=== PATIENT | female | born 1980 | race Caucasian/White ===

== ENCOUNTER → 2024-11-24 07:30 | Outpatient (BNVA) | payer OTHER, SELFPAY | PROVIDERS: Family Provider Family Medicine; PCP Family Medicine | DX: N39.0 Urinary tract infection, site not specified (principal) | CPT/HCPCS: 81000 ==

== ENCOUNTER → 2025-02-09 08:41 | Outpatient (BNVA) | payer OTHER, SELFPAY | PROVIDERS: PCP Family Medicine; Visit Provider Family Medicine | DX: Z51.81 Encounter for therapeutic drug level monitoring (principal); Z00.00 Encounter for general adult medical examination without abnormal findings; Z13.6 Encounter for screening for cardiovascular disorders; M06.9 Rheumatoid arthritis, unspecified; E11.9 Type 2 diabetes mellitus without complications; Z12.4 Encounter for screening for malignant neoplasm of cervix | CPT/HCPCS: 80053; 80061; 82746; 83036; 85025; 86141; 86431; 87624 ==

== ENCOUNTER 2025-03-14 07:57 | Outpatient (CLI) | payer OTHER, SELFPAY ==
--- NOTE | 2025-03-14 08:00 | MM_ITS ---
WS: [id number] BILATERAL DIAGNOSTIC DIGITAL BREAST MAMMOGRAPHY WITH SAAD DISPLACEMENT VIEWS. CAD PERFORMED. LEFT breast ultrasound, limited HISTORY: Palpable area upper outer quadrant LEFT breast. COMPARISON: None available. Bilateral craniocaudal, ML and mediolateral oblique views are performed with tomosynthesis and SM. Spot compression LEFT CC, MLO and mag views. Saad displacement views in CC and MLO projection also performed. Breasts composition: The breasts are heterogeneously dense, which may obscure small masses. Implants are retropectoral and intact. Palpable marker placed along the upper outer quadrant of the LEFT breast very close to the implant. There are a few internal calcifications and also increased asymmetry and density. There are additional linear calcifications just deep to the asymmetry. The irregular shaped asymmetry measures 1.6 x 2.1 cm with central slightly pleomorphic calcifications. No additional abnormality identified. LEFT breast ultrasound, limited. Irregular, angular hypoechoic mass at 2:00, 5 cm from the nipple. This corresponds to the palpable and mammographic abnormality. Mass measures 1.4 x 1.4 x 1.1 cm. There is mild peripheral increased vascularity. Mass does appear to extend very close to the surface of the implant. MM/MM diag BI tomosynthesis [id number] IMPRESSION: BI-RADS: 5 - Highly suggestive of Malignancy FOLLOW-UP: Biopsy Recommended Ultrasound-guided biopsy recommended of the irregular mass LEFT breast 2:00, 5 cm from the nipple. There are some additional calcifications close to the surface of the LEFT impla nt which are linear. These may be dystrophic and related to the implant placeme nt. These would be difficult to biopsy. Surgical biopsy may be necessary. If th e mass at 2:00 is neoplastic surgery will be recommended and these additional c alcifications will need to be addressed surgically. Notified Ivanna Arizmendi MD at 03/14/2025 9:16 AM. Report discussed with Marisol.
--- NOTE | 2025-03-14 08:04 | US_ITS ---
WS: [id number] BILATERAL DIAGNOSTIC DIGITAL BREAST MAMMOGRAPHY WITH SAAD DISPLACEMENT VIEWS. CAD PERFORMED. LEFT breast ultrasound, limited HISTORY: Palpable area upper outer quadrant LEFT breast. COMPARISON: None available. Bilateral craniocaudal, ML and mediolateral oblique views are performed with tomosynthesis and SM. Spot compression LEFT CC, MLO and mag views. Saad displacement views in CC and MLO projection also performed. Breasts composition: The breasts are heterogeneously dense, which may obscure small masses. Implants are retropectoral and intact. Palpable marker placed along the upper outer quadrant of the LEFT breast very close to the implant. There are a few internal calcifications and also increased asymmetry and density. There are additional linear calcifications just deep to the asymmetry. The irregular shaped asymmetry measures 1.6 x 2.1 cm with central slightly pleomorphic calcifications. No additional abnormality identified. LEFT breast ultrasound, limited. Irregular, angular hypoechoic mass at 2:00, 5 cm from the nipple. This corresponds to the palpable and mammographic abnormality. Mass measures 1.4 x 1.4 x 1.1 cm. There is mild peripheral increased vascularity. Mass does appear to extend very close to the surface of the implant. US/US breast LT limited* [id number] IMPRESSION: BI-RADS: 5 - Highly suggestive of Malignancy FOLLOW-UP: Biopsy Recommended Ultrasound-guided biopsy recommended of the irregular mass LEFT breast 2:00, 5 cm from the nipple. There are some additional calcifications close to the surface of the LEFT impla nt which are linear. These may be dystrophic and related to the implant placeme nt. These would be difficult to biopsy. Surgical biopsy may be necessary. If th e mass at 2:00 is neoplastic surgery will be recommended and these additional c alcifications will need to be addressed surgically. Notified Ivanna Arizmendi MD at 03/14/2025 9:16 AM. Report discussed with
== END 2025-03-14 07:58 | disposition home or self-care (01) ==
PROVIDERS: PCP Family Medicine; Visit Provider Family Medicine
DX: N63.21 Unspecified lump in the left breast, upper outer quadrant (principal); R92.333 Mammographic heterogeneous density, bilateral breasts; Z98.82 Breast implant status; R92.1 Mammographic calcification found on diagnostic imaging of breast; N64.89 Other specified disorders of breast
CPT/HCPCS: 76642; 77062; G0279

== ENCOUNTER → 2025-05-02 09:23 | Outpatient (BNVA) | payer OTHER, SELFPAY | PROVIDERS: PCP Family Medicine; Visit Provider Obstetrics & Gynecology | DX: R87.619 Unspecified abnormal cytological findings in specimens from cervix uteri (principal) | CPT/HCPCS: 88305; 88342 ==

== ENCOUNTER → 2025-08-25 12:20 | Outpatient (BNVA) | payer OTHER, SELFPAY | PROVIDERS: PCP Family Medicine; Visit Provider Emergency Medicine | DX: R39.89 Other symptoms and signs involving the genitourinary system (principal) | CPT/HCPCS: 81000; 87086 ==

== ENCOUNTER 2025-09-12 14:15 | Oncology outpatient (recurring) (ONCR) | payer OTHER, SELFPAY | END 2025-10-02 23:59 | disposition home or self-care (01) | PROVIDERS: PCP Family Medicine; Visit Provider Internal Medicine Medical Oncology | DX: Z53.9 Procedure and treatment not carried out, unspecified reason (principal) | CPT/HCPCS: 36415 ==

== ENCOUNTER → 2025-09-15 16:30 | Outpatient (BNVA) | payer OTHER, SELFPAY | PROVIDERS: PCP Family Medicine; Visit Provider Obstetrics & Gynecology | DX: R87.619 Unspecified abnormal cytological findings in specimens from cervix uteri (principal) | CPT/HCPCS: 87624 ==

== ENCOUNTER 2025-10-17 13:19 | Oncology outpatient (recurring) (ONCR) | payer OTHER, SELFPAY ==
[2025-10-17 13:36] LABS: Hematocrit 35.5 % (36-47); Hemoglobin 11.50 g/dL (11.27-16.99); Mean Corpuscular HGB Conc 32.4 g/dL (30-55); Mean Corpuscular Hemoglobin 30.3 pg (27-33); Mean Corpuscular Volume 93.7 fl (85-98); Nucleated Red Blood Cells % 0 %; Platelet Count 217 10^3/cmm (157-399); Red Blood Count 3.79 10^6/uL (3.85-5.65); White Blood Count 6.12 10^3/uL (3.29-11.43)
[2025-10-17 13:59] LABS: Alanine Aminotransferase 28 U/L (0-33); Albumin Level 4.5 g/dL (3.5-5.2); Alkaline Phosphatase 95 U/L (35-105); Anion Gap 15.0 (5-19); Aspartate Amino Transferase 23 U/L (0-32); Blood Urea Nitrogen 16 mg/dL (6-20); Calcium 9.8 mg/dL (8.5-10.5); Carbon Dioxide 25 mmol/L (22-29); Chloride 101 mmol/L (98-107); Globulin 2.7 g/dL (1.3-4.6); Glucose 237 mg/dL (65-115); Osmolality Calculated 293 mOsm/kg (285-295); Potassium 4.0 mmol/L (3.5-5.1); Sodium 137 mmol/L (136-145); Total Protein 7.2 g/dL (6.6-8.7)
[2025-10-17] MEDS: lidocaine 1% INJ 20 mL SUBCUT (15:18)
== END 2025-11-02 23:59 | disposition home or self-care (01) ==
PROVIDERS: PCP Family Medicine; Visit Provider Nurse Practitioner Family
DX: Z51.11 Encounter for antineoplastic chemotherapy (principal); C50.919 Malignant neoplasm of unspecified site of unspecified female breast; Z79.818 Long term (current) use of other agents affecting estrogen receptors and estrogen levels
CPT/HCPCS: 80053; 85025; 96372; 96402; 96413; J9202; J9999

== ENCOUNTER 2025-11-01 14:15 | Outpatient (CLI) | payer OTHER, SELFPAY ==
--- NOTE | 2025-11-01 14:30 | XR_ITS ---
WS: [id number] SCREENING DEXA SCAN [employer] CLINICAL INFORMATION: Baseline prior to hormonal medications COMPARISON: None. FINDINGS: The L1-L4 bone mineral density measures 1.479 g/cm2. This corresponds to a T score score of 2.5 and Z score of 1.8. Left femoral neck bone mineral density measures 1.132 (g/cm2). This corresponds to a T score of 1.0 (no units) and Z score of 0.7 (no units). LEFT forearm bone mineral density measures 1.022 g/sq cm with a T score of 1.7 and a Z score 1.7 XR/XR DEXA axial skeleton* [id number] IMPRESSION: Normal bone mineralization lumbar spine, LEFT forearm, and LEFT femur. Patient's FRAX calculated 10 year probability for major osteoporotic fracture i s 2.7% and osteoporotic hip fracture is 0.0%.
== END 2025-11-01 14:16 | disposition home or self-care (01) ==
LOC: RAD 14:16
PROVIDERS: PCP Family Medicine; Visit Provider Nurse Practitioner Family
DX: C50.919 Malignant neoplasm of unspecified site of unspecified female breast (principal); Z79.899 Other long term (current) drug therapy
CPT/HCPCS: 77080